=== PATIENT | female | born 1965 ===

== ENCOUNTER 2023-01-27 13:40 | Outpatient (CLI) | payer MEDICARE ==
[2023-01-27 17:07] LABS: Hematocrit 45.2 % (34.9-44.5); Hemoglobin 15.6 g/dL (12.0-15.5); Mean Corpuscular HGB CONC 34.5 g/dL (32.0-36.0); Mean Corpuscular Hemoglobin 37.1 pg (27.0-33.0); Mean Corpuscular Volume 107.4 fl (81.6-98.3); Mean Platelet Volume 8.6 fl (7.4-10.4); Platelet Count 442 10x3/uL (150-450); RBC Distribution Width 11.7 % (11.5-14.5); Red Blood Cell (RBC) Count 4.21 10x6/uL (3.90-5.03); White Blood Cell (WBC) Count 9.9 10x3/uL (3.5-10.5)
[2023-01-27 17:28] LABS: Anion Gap 19 mmol/L (10-20); BUN (Urea Nitrogen) 15 mg/dL (9.8-20.1); Calc. Creatinine Clearance 0 mL/min (70-130); Calcium 9.6 mg/dL (7.8-10.44); Carbon Dioxide 29 mmol/L (22-29); Chloride 96 mmol/L (98-107); Estimated GFR 101; Glucose 94 mg/dL (70-105); Potassium 2.7 mmol/L (3.5-5.1); Sodium 141 mmol/L (136-145)
== END 2023-01-27 13:41 | disposition home or self-care (01) ==
LOC: CSHLAB 13:40
PROVIDERS: ATTEND Otolaryngology Plastic Surgery within the Head & Neck
DX: Z01.818 Encounter for other preprocedural examination (principal); K13.70 Unspecified lesions of oral mucosa
CPT/HCPCS: 80048; 85027; 93005; 93010

== ENCOUNTER 2023-01-31 07:29 | Day surgery (SDC) | payer MEDICARE ==
[2023-01-27 15:41] VITALS: BMI 12.9
[2023-01-31 08:57] LABS: Potassium 2.3 mmol/L (3.5-5.1)
[2023-01-31] MEDS ORDERED: Rocuronium Bromide 10 MG/ML (10ML VIAL) ONE (10:55)
[2023-01-31] MEDS ORDERED: Lidocaine 1% PF 5 ML VIAL ONE (10:55)
[2023-01-31] MEDS ORDERED: Dexamethasone 20 MG/5 ML VIAL ONE (10:55)
[2023-01-31] MEDS ORDERED: Ondansetron PF 4 MG/2 ML Vial ONE (10:55)
[2023-01-31] MEDS ORDERED: PROPOFOL 20 ML ONE (10:56)
[2023-01-31] MEDS ORDERED: Midazolam HCl 2 mg/2 ml Vial ONE (10:56)
[2023-01-31] MEDS ORDERED: fentaNYL 50 mcg/mL 1 mL Vial ONE (10:56)
[2023-01-31] MEDS ORDERED: EPINEPHrine 1 MG/ML VIAL ONE (11:08)
[2023-01-31] MEDS ORDERED: SUGAMMADEX SODIUM 200 MG/2 ML VIAL ONE (11:10)
[2023-01-31] MEDS ORDERED: ePHEDrine Sulfate 50 MG/10 ML VIAL ONE (11:32)
== END 2023-01-31 14:00 | disposition home or self-care (01) ==
LOC: CSHSDC 07:29
PROVIDERS: ATTEND Otolaryngology Plastic Surgery within the Head & Neck
PROC: 0CBM8ZX Excision of Pharynx, Via Natural or Artificial Opening Endoscopic, Diagnostic (ICD-10-PCS; principal; 2023-01-31)
PROC: 0DH63UZ Insertion of Feeding Device into Stomach, Percutaneous Approach (ICD-10-PCS; 2023-01-31)
DX: C05.1 Malignant neoplasm of soft palate (principal); D53.9 Nutritional anemia, unspecified; E87.6 Hypokalemia; K21.9 Gastro-esophageal reflux disease without esophagitis; F17.210 Nicotine dependence, cigarettes, uncomplicated; F10.90 Alcohol use, unspecified, uncomplicated; I25.2 Old myocardial infarction; R13.10 Dysphagia, unspecified; Z79.899 Other long term (current) drug therapy
CPT/HCPCS: 31535; 43246; 84132; J0171; J3010; 88305; 88331; 88342; J1100; J2250; J2405; J2704